=== PATIENT | female | born 1995 | race Two or more races ===

== ENCOUNTER 2019-05-25 14:31 | Emergency (ER) | payer MEDICAID ==
[2019-05-25] MEDS ORDERED: Acetaminophen 500 MG Tab PO ONE (14:57)
[2019-05-25] MEDS ORDERED: Ibuprofen 800 MG Tab PO ONE (14:57)
--- NOTE | 2019-05-25 15:40 | EDM.PDOC ---
ED HPI GENERAL MEDICAL PROBLEM - General Chief Complaint: Syncope Stated Complaint: PASSED OUT, LOTS OF PAIN Time Seen by Provider: 05/25/19 14:40 Source of Information: Reports: Patient History Limitations: Reports: No Limitations - History of Present Illness INITIAL COMMENTS - FREE TEXT/NARRATIVE: Patient presented to the ED because of a syncopal episode while shopping at [employer]. She can't recall what really happened prior to passing out. She said she is under a lot of emotional stress. She c/o headache,body ache. She is tearful and anxious. head Pain Score (Numeric/FACES): 8 back of both legs Pain Score (Numeric/FACES): 8 - Related Data Allergies Allergy/AdvReac Type Severity Reaction Status Date / Time nectarines Allergy Swelling Uncoded 05/25/19 14:46 pineapples Allergy Hives Uncoded 05/25/19 14:46 Home Meds: Home Meds Pantoprazole 20 mg PO ASDIRECTED 05/25/19 [History] Past Medical History Neurological History: Reports: Other (See Below) Other Neuro History: seizure at age 2 - Past Surgical History GI Surgical History: Reports: Cholecystectomy Social & Family History - Tobacco Use Smoking Status *Q: Current Every Day Smoker Years of Tobacco use: 5 Packs/Tins Daily: 0.5 - Recreational Drug Use Recreational Drug Use: No ED ROS GENERAL - Review of Systems Review Of Systems: See Below Constitutional: Reports: No Symptoms HEENT: Reports: No Symptoms Respiratory: Reports: No Symptoms Cardiovascular: Reports: No Symptoms Endocrine: Reports: No Symptoms GI/Abdominal: Reports: No Symptoms : Reports: No Symptoms Musculoskeletal: Reports: Other (aches all over) Skin: Reports: No Symptoms Neurological: Reports: Headache - Physical Exam Exam: See Below Exam Limited By: No Limitations Eye Exam: Bilateral Eye: PERRL Ears: Normal External Exam, Normal Canal, Hearing Grossly Normal Nose: Normal Inspection, Normal Mucosa, No Blood Throat/Mouth: Normal Inspection, Normal Lips, Normal Teeth Head Exam: Normocephalic, Other (hematoma on rt parietal area) Neck: Normal Inspection, Supple, Non-Tender, Full Range of Motion Respiratory/Chest: No Respiratory Distress, Lungs Clear, Normal Breath Sounds Cardiovascular: Normal Peripheral Pulses (Female) Exam: Normal External Exam Course - Vital Signs Text/Narrative:: head CT-see result advised follow up with PMD to have brain MRI/MRA Ibuprofen 800 mg with tylenol 1000 po x1 labs and CT scan result discussed with patient Last Recorded V/S: Last Vital Signs Temp 36.8 C 05/25/19 14:35 Pulse 61 05/25/19 15:40 Resp 16 05/25/19 15:40 BP 121/61 05/25/19 15:40 Pulse Ox 100 05/25/19 15:40 - Orders/Labs/Meds Orders: Active Orders 24 hr Category Date Time Status EKG Documentation Completion [RC] ASDIRECTED Care 05/25/19 14:54 Active Head wo Cont [CT] Stat Exams 05/25/19 14:52 Taken EKG 12 Lead [EK] Routine Ther 05/25/19 14:52 Ordered Labs: Laboratory Tests 05/25/19 05/25/19 05/25/19 Range/Units 14:54 14:58 15:00 WBC 12.9 H (4.5-12.0) X10-3/uL RBC 4.90 (3.23-5.20) x10(6)uL Hgb 14.3 (11.5-15.5) g/dL Hct 42.8 (30.0-51.3) % MCV 87.3 (80-96) fL MCH 29.1 (27.7-33.6) pg MCHC 33.4 (32.2-35.4) g/dL RDW 13.2 (11.5-15.5) % Plt Count 331 (125-369) X10(3)uL MPV 7.5 (7.4-10.4) fL Neut % (Auto) 76.2 (46-82) % Lymph % (Auto) 17.4 (13-37) % Lenoir % (Auto) 5.3 (4-12) % Eos % (Auto) 1 (1.0-5.0) % Baso % (Auto) 1 (0-2) % Neut # (Auto) 9.8 H (1.6-8.3) # Lymph # (Auto) 2.2 (0.6-5.0) # Lenoir # (Auto) 0.7 (0.0-1.3) # Eos # (Auto) 0.1 (0.0-0.8) # Baso # (Auto) 0.1 (0.0-0.2) # Sodium (135-145) mmol/L Potassium (3.5-5.3) mmol/L Chloride (100-110) mmol/L Carbon Dioxide (21-32) mmol/L BUN (7-18) mg/dL Creatinine (0.55-1.02) mg/dL Est Cr Clr Drug Dosing mL/min Estimated GFR (MDRD) (>60) BUN/Creatinine Ratio (9-20) Glucose (80-116) mg/dL Calcium (8.6-10.2) mg/dL Total Bilirubin (0.1-1.3) mg/dL AST (5-25) IU/L ALT (12-36) U/L Alkaline Phosphatase (56-112) IU/L Total Protein (6.0-8.0) g/dL Albumin (3.5-5.2) g/dL Globulin g/dL Albumin/Globulin Ratio Urine Color Yellow (YELLOW) Urine Appearance Clear (CLEAR) Urine pH 6.5 (5.0-6.5) Ur Specific Macy 1.010 (1.010-1.025) Urine Protein Negative (NEGATIVE) mg/dL Urine Glucose (UA) Normal (NORMAL) mg/dL Urine Ketones Negative (NEGATIVE) mg/dL Urine Occult Blood Negative (NEGATIVE) Urine Nitrite Negative (NEGATIVE) Urine Bilirubin Negative (NEGATIVE) Urine Urobilinogen Normal (NEGATIVE) mg/dL Ur Leukocyte Esterase Negative (NEGATIVE) Urine RBC Not seen (0-5) Urine WBC 0-5 (0-5) Ur Squamous Epith Cells Few H (NS,R,O) Urine Bacteria Rare H (NS) Urine HCG, Qual Negative (NEGATIVE) 05/25/19 Range/Units 15:00 WBC (4.5-12.0) X10-3/uL RBC (3.23-5.20) x10(6)uL Hgb (11.5-15.5) g/dL Hct (30.0-51.3) % MCV (80-96) fL MCH (27.7-33.6) pg MCHC (32.2-35.4) g/dL RDW (11.5-15.5) % Plt Count (125-369) X10(3)uL MPV (7.4-10.4) fL Neut % (Auto) (46-82) % Lymph % (Auto) (13-37) % Lenoir % (Auto) (4-12) % Eos % (Auto) (1.0-5.0) % Baso % (Auto) (0-2) % Neut # (Auto) (1.6-8.3) # Lymph # (Auto) (0.6-5.0) # Lenoir # (Auto) (0.0-1.3) # Eos # (Auto) (0.0-0.8) # Baso # (Auto) (0.0-0.2) # Sodium 139 (135-145) mmol/L Potassium 3.7 (3.5-5.3) mmol/L Chloride 102 (100-110) mmol/L Carbon Dioxide 25 (21-32) mmol/L BUN 8 (7-18) mg/dL Creatinine 0.8 (0.55-1.02) mg/dL Est Cr Clr Drug Dosing 86.50 mL/min Estimated GFR (MDRD) > 60 (>60) BUN/Creatinine Ratio 10.0 (9-20) Glucose 93 (80-116) mg/dL Calcium 9.3 (8.6-10.2) mg/dL Total Bilirubin 0.4 (0.1-1.3) mg/dL AST 36 H (5-25) IU/L ALT 50 H (12-36) U/L Alkaline Phosphatase 94 (56-112) IU/L Total Protein 8.2 H (6.0-8.0) g/dL Albumin 4.1 (3.5-5.2) g/dL Globulin 4.1 g/dL Albumin/Globulin Ratio 1.0 Urine Color (YELLOW) Urine Appearance (CLEAR) Urine pH (5.0-6.5) Ur Specific Macy (1.010-1.025) Urine Protein (NEGATIVE) mg/dL Urine Glucose (UA) (NORMAL) mg/dL Urine Ketones (NEGATIVE) mg/dL Urine Occult Blood (NEGATIVE) Urine Nitrite (NEGATIVE) Urine Bilirubin (NEGATIVE) Urine Urobilinogen (NEGATIVE) mg/dL Ur Leukocyte Esterase (NEGATIVE) Urine RBC (0-5) Urine WBC (0-5) Ur Squamous Epith Cells (NS,R,O) Urine Bacteria (NS) Urine HCG, Qual (NEGATIVE) Meds: Medications Discontinued Medications Generic Name Dose Route Start Last Admin Trade Name Thelma PRN Reason Stop Dose Admin Acetaminophen 1,000 mg 05/25/19 14:57 05/25/19 15:15 Tylenol Extra Strength PO 05/25/19 14:58 1,000 mg ONETIME ONE Administration Ibuprofen 800 mg 05/25/19 14:57 05/25/19 15:15 Motrin PO 05/25/19 14:58 800 mg ONETIME ONE Administration Departure - Departure Time of Disposition: 15:40 Disposition: Home, Self-Care 01 Condition: Good Clinical Impression: Syncope, Vasovagal syncope - Discharge Information *PRESCRIPTION DRUG MONITORING PROGRAM REVIEWED*: No *COPY OF PRESCRIPTION DRUG MONITORING REPORT IN PATIENT NORBERTO: No Instructions: Head Injury, Adult, Syncope, [id number] Referrals: PCP,None [Primary Care Provider] - Forms: ED Department Discharge Additional Instructions: Please read discharge instructions on vasovagal syncope and closed head injury Rest for the day You need to follow up with a doctor who will order MRI/MRA of your brain You can take ibuprofen 800 mg with tylenol 1000 mg every 8 hours as needed for pain/aches - My Orders Last 24 Hours: My Active Orders 05/25/19 14:52 Head wo Cont [CT] Stat EKG 12 Lead [EK] Routine 05/25/19 14:54 EKG Documentation Completion [RC] ASDIRECTED - Assessment/Plan Last 24 Hours: My Active Orders 05/25/19 14:52 Head wo Cont [CT] Stat EKG 12 Lead [EK] Routine 05/25/19 14:54 EKG Documentation Completion [RC] ASDIRECTED
--- NOTE | 2019-05-26 08:31 | CT ---
INDICATION: Syncope, fell with posterior parietal head injury. CT HEAD WITHOUT CONTRAST: Spiral 3.75 mm axial imaging of the brain was obtained with sagittal and coronal reconstructions, 05/25/19 - no comparisons. Total exam DLP = 1,296.53 mGy-cm. The paranasal sinuses and mastoid air cells were well-aerated. There is a scalp hematoma in left posterior parietal area with no underlying cranial fracture site. There is a rounded area of decreased density in the left basal ganglia, which could represent an acute lesion. It is low in density, however, and may be old - no old studies were available for comparison. MRI may be helpful for further evaluation of that finding, as may iodinated contrast CT examination. No other areas of abnormal decreased density were identified - no bleeding site or hematoma was seen. IMPRESSION: 1. No definite acute intracranial abnormality. 2. Low density abnormality in the basal ganglia, etiology indeterminate. Further workup may be warranted, such as contrast-enhanced CT or preferably MRI. 3. Posterior parietal scalp hematoma on the left. Report was called to Dr. Deluca at 1531 hours on 05/25/19. [facility]
== END 2019-05-25 15:55 | disposition home or self-care (01) ==
LOC: FB.ED 14:31
DX: R55 Syncope and collapse (principal); F41.9 Anxiety disorder, unspecified; F17.210 Nicotine dependence, cigarettes, uncomplicated; Z91.018 Allergy to other foods
CPT/HCPCS: 36415; 70450; 80053; 81001; 81025; 85025; 93005; 99284-25; A9270-GY

== ENCOUNTER 2019-06-02 06:33 | Emergency (ER) | payer MEDICAID ==
[2019-06-02] MEDS ORDERED: Ketorolac 60 MG/2 ML SDV IM ONE (07:32)
--- NOTE | 2019-06-02 07:41 | EDM.PDOC ---
ED HPI GENERAL MEDICAL PROBLEM - General Chief Complaint: Headache Stated Complaint: HEAD PAIN Time Seen by Provider: 06/02/19 07:34 Source of Information: Reports: Patient History Limitations: Reports: No Limitations - History of Present Illness INITIAL COMMENTS - FREE TEXT/NARRATIVE: c/o ZULETA pt with syncopal episode 8d ago at [facility], still with ZULETA in same area on L top of head and now also behind L ear where blood has tracked down pt wearing a Holtor monitor x 48h which comes off today altho pt reports it come off last night and she had to reattach it works at [employer], went to work today and decided pain was too much, had not taken pain meds today, had taken Tyl 2 tabs BID previously (sometimes ASA) she had a febrile szs once at age 2, no other szs hx pt had seen Dr Baron in the office who began her on an antbx for a "throat infection" with "multiple pus pockets", throat still sore and has not gotten better no street drugs, no THC (altho had used when living in [facility]), smokes less 1/2 ppd moved here recently with 3 yo son pt says there was no prodrome at [facility], feeling fine, found herself on the floor surrounded by people, says she had been down 8-9 min per bystanders no incontinence B/B, say she was feeling fine afterward other than the ZULETA which has persisted for 8d, however when she called her sister her sister said that " I repeated myself 10 times" pt given results of MRI today next apt with Dr Baron is in one month only meds are pantoprazole and antbx pt reports that an EMT was at her side immediately after she fell and "knew what to do", there was no report of arrhythmia - Related Data Allergies Allergy/AdvReac Type Severity Reaction Status Date / Time nectarines Allergy Swelling Uncoded 05/25/19 14:46 pineapples Allergy Hives Uncoded 05/25/19 14:46 Home Meds: Home Meds Pantoprazole 20 mg PO ASDIRECTED 05/25/19 [History] Past Medical History Neurological History: Reports: Other (See Below) Other Neuro History: seizure at age 2 - Past Surgical History GI Surgical History: Reports: Cholecystectomy Social & Family History - Tobacco Use Smoking Status *Q: Current Every Day Smoker Years of Tobacco use: 5 Packs/Tins Daily: 0.5 - Recreational Drug Use Recreational Drug Use: No ED ROS GENERAL - Review of Systems Review Of Systems: See Below Constitutional: Reports: No Symptoms HEENT: Reports: No Symptoms Respiratory: Reports: No Symptoms Cardiovascular: Reports: Other (pt reports minor chest ache L upper chest since her fall when she bends or moves) Endocrine: Reports: No Symptoms GI/Abdominal: Reports: No Symptoms : Reports: No Symptoms Musculoskeletal: Reports: No Symptoms Skin: Reports: No Symptoms Neurological: Reports: Headache Psychiatric: Reports: No Symptoms Hematologic/Lymphatic: Reports: No Symptoms Immunologic: Reports: No Symptoms ED EXAM, GENERAL - Physical Exam Exam: See Below Exam Limited By: No Limitations General Appearance: Alert, WD/WN, No Apparent Distress Ears: Normal External Exam, Normal Canal, Hearing Grossly Normal, Normal TMs Nose: Normal Inspection, Normal Mucosa, No Blood Throat/Mouth: Normal Lips, Normal Teeth, Normal Gums, Other (mild 1+ pink tonsils b/l without exudate, 1+ tonsil size, neck no LNs, conj mild red b/l, tongue slight swell at R margin (was quite swollen at time of fall, per pt)) Head: Atraumatic, Normocephalic Neck: Normal Inspection, Supple, Non-Tender, Full Range of Motion. No: Lymphadenopathy (R), Lymphadenopathy (L) Respiratory/Chest: No Respiratory Distress, Lungs Clear, Normal Breath Sounds, No Accessory Muscle Use, Chest Non-Tender Cardiovascular: Regular Rate, Rhythm, No Edema, No Gallop, No Murmur, No Rub, JVD GI/Abdominal: Normal Bowel Sounds, Soft, Non-Tender, No Distention Back Exam: Normal Inspection, Full Range of Motion, NT Extremities: Normal Inspection, Normal Range of Motion, Non-Tender, Normal Capillary Refill, No Pedal Edema Neurological: Alert, Oriented, CN II-XII Intact, Normal Cognition, Normal Gait, No Motor/Sensory Deficits Psychiatric: Normal Affect, Normal Mood Skin Exam: Warm, Dry, Intact, Normal Color, No Rash Lymphatic: No Adenopathy Course - Vital Signs Last Recorded V/S: Last Vital Signs Temp 36.2 C 06/02/19 06:45 Pulse 84 06/02/19 06:45 Resp 18 06/02/19 06:45 BP 132/87 11/14/19 06:45 Pulse Ox 96 06/02/19 06:45 - Orders/Labs/Meds Orders: Active Orders 24 hr Category Date Time Status CULTURE STREP A CONFIRMATION [RM] Stat Lab 06/02/19 07:40 Results HEPATITIS PANEL (4) Routine Lab 06/02/19 08:36 Ordered MONONUCLEOSIS SCREEN [CHEM] Stat Lab 06/02/19 08:36 Ordered STREP SCRN A RAPID W CULT CONF [RM] Stat Lab 06/02/19 07:40 Results Labs: Laboratory Tests 06/02/19 06/02/19 06/02/19 Range/Units 07:48 07:48 07:48 WBC 8.8 (4.5-12.0) X10-3/uL RBC 4.66 (3.23-5.20) x10(6)uL Hgb 13.7 (11.5-15.5) g/dL Hct 40.8 (30.0-51.3) % MCV 87.6 (80-96) fL MCH 29.4 (27.7-33.6) pg MCHC 33.5 (32.2-35.4) g/dL RDW 13.1 (11.5-15.5) % Plt Count 381 H (125-369) X10(3)uL MPV 7.2 L (7.4-10.4) fL Neut % (Auto) 62.8 (46-82) % Lymph % (Auto) 29.9 (13-37) % Meade % (Auto) 5.3 (4-12) % Eos % (Auto) 2 (1.0-5.0) % Baso % (Auto) 1 (0-2) % Neut # (Auto) 5.6 (1.6-8.3) # Lymph # (Auto) 2.6 (0.6-5.0) # Meade # (Auto) 0.5 (0.0-1.3) # Eos # (Auto) 0.1 (0.0-0.8) # Baso # (Auto) 0.0 (0.0-0.2) # Sodium 140 (135-145) mmol/L Potassium 3.9 (3.5-5.3) mmol/L Chloride 106 (100-110) mmol/L Carbon Dioxide 23 (21-32) mmol/L BUN 11 (7-18) mg/dL Creatinine 0.7 (0.55-1.02) mg/dL Est Cr Clr Drug Dosing 103.40 mL/min Estimated GFR (MDRD) > 60 (>60) BUN/Creatinine Ratio 15.7 (9-20) Glucose 105 (80-116) mg/dL Calcium 9.4 (8.6-10.2) mg/dL Total Bilirubin 0.4 (0.1-1.3) mg/dL AST 38 H (5-25) IU/L ALT 72 H D (12-36) U/L Alkaline Phosphatase 98 (56-112) IU/L C-Reactive Protein 1.4 H (0.5-0.9) mg/dL Total Protein 7.6 (6.0-8.0) g/dL Albumin 3.7 (3.5-5.2) g/dL Globulin 3.9 g/dL Albumin/Globulin Ratio 1.0 Meds: Medications Discontinued Medications Generic Name Dose Route Start Last Admin Trade Name Freq PRN Reason Stop Dose Admin Ketorolac Tromethamine 60 mg 06/02/19 07:32 Toradol IM 06/02/19 07:33 ONETIME ONE - Radiology Interpretation Free Text/Narrative:: labs reviewed, mono neg in office, pt reports inc'd LFTs in past, says hepatitis testing has not been done does have a flu-like illness with inflammation of conj and pharynx, which may be contributing to her ZULETA has taken inadequate doses of analgesics Departure - Departure Time of Disposition: 08:38 Disposition: Home, Self-Care 01 Condition: Good Clinical Impression: Post-concussion headache, Viral syndrome, Elevated liver function tests, Elevated C-reactive protein (CRP) - Discharge Information *PRESCRIPTION DRUG MONITORING PROGRAM REVIEWED*: Not Applicable *COPY OF PRESCRIPTION DRUG MONITORING REPORT IN PATIENT NORBERTO: Not Applicable Instructions: Post-Concussion Syndrome Referrals: Regla Baron MD [Primary Care Provider] - Forms: ED Department Discharge Additional Instructions: For pain, in order to break the pain cycle, take ibuprofen 200 mg 4 tabs and acetaminophen 500 mg 2 tabs 3 times a day for 5 days. If you still have pain despite meds, use ice for 10 minutes every 2 hours as needed. See Dr Baron in 4 days for further evaluation and recommendations. Hepatitis tests results should be back in 4 days. Get adequate rest. Maintain fluids. Eat 3 meals a day. - My Orders Last 24 Hours: My Active Orders 06/02/19 07:40 CULTURE STREP A CONFIRMATION [RM] Stat STREP SCRN A RAPID W CULT CONF [RM] Stat 06/02/19 08:36 HEPATITIS PANEL (4) Routine MONONUCLEOSIS SCREEN [CHEM] Stat - Assessment/Plan Last 24 Hours: My Active Orders 06/02/19 07:40 CULTURE STREP A CONFIRMATION [RM] Stat STREP SCRN A RAPID W CULT CONF [RM] Stat 06/02/19 08:36 HEPATITIS PANEL (4) Routine MONONUCLEOSIS SCREEN [CHEM] Stat
[2019-06-03 11:09] LABS: HBSAG SCREEN Negative (Negative); HEP A AB, IGM Negative (Negative); HEP B CORE AB, IGM Negative (Negative); HEP C VIRUS AB 0.1 s/co ratio (0.0-0.9)
== END 2019-06-02 08:57 | disposition home or self-care (01) ==
LOC: FB.ED 06:33
DX: F07.81 Postconcussional syndrome (principal); B34.9 Viral infection, unspecified; R94.5 Abnormal results of liver function studies; R79.82 Elevated C-reactive protein (CRP); F17.210 Nicotine dependence, cigarettes, uncomplicated; Z91.018 Allergy to other foods
CPT/HCPCS: 36415; 80053; 80074; 85025; 86140; 87081; 87880; 96372; 99284; J1885

== ENCOUNTER 2019-06-08 15:20 | Emergency (ER) | payer MEDICAID ==
--- NOTE | 2019-06-08 17:08 | EDM.PDOC ---
ED HPI GENERAL MEDICAL PROBLEM - General Chief Complaint: Neuro Symptoms/Deficits Stated Complaint: FEELING PASSED OUT Time Seen by Provider: 06/08/19 15:40 Source of Information: Reports: Patient History Limitations: Reports: No Limitations - History of Present Illness INITIAL COMMENTS - FREE TEXT/NARRATIVE: Patient presented to the ED because of near syncopal episode. He was shopping when all of a sudden she felt like she want to pass out. She denies any palpitations, headache. She had a Head CT,MRI which was normal and just last week had a holter monitor and EEG but results are pending at this time. Headache Pain Score (Numeric/FACES): 8 - Related Data Allergies Allergy/AdvReac Type Severity Reaction Status Date / Time nectarines Allergy Swelling Uncoded 06/08/19 15:38 pineapples Allergy Hives Uncoded 06/08/19 15:38 Home Meds: Home Meds Pantoprazole 20 mg PO ASDIRECTED 05/25/19 [History] Ibuprofen 800 mg PO TID #30 tablet 06/02/19 [Rx] Amoxicillin [Amoxil] 875 mg PO Q12HR 06/08/19 [History] Sertraline [Zoloft] 25 mg PO DAILY 06/08/19 [History] Past Medical History Respiratory History: Reports: Asthma Gastrointestinal History: Reports: None, Gastritis, Other (See Below) Other Gastrointestinal History: fatty liver 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: Neurological History: Reports: Concussion, Migraines, Seizure, Other (See Below) Other Neuro History: seizure at age 2 Psychiatric History: Reports: Anxiety, Depression Endocrine/Metabolic History: Reports: Obesity/BMI 30+ - Past Surgical History GI Surgical History: Reports: Cholecystectomy Social & Family History - Family History Family Medical History: Noncontributory - Tobacco Use Smoking Status *Q: Current Every Day Smoker Years of Tobacco use: 5 Packs/Tins Daily: 0.4 - Caffeine Use Caffeine Use: Reports: Coffee, Tea - Recreational Drug Use Recreational Drug Use: Yes Recreational Drug Type: Reports: Marijuana/Hashish Other Recreational Drug Type: Hasn't smoked x past 4 weeks. ED ROS GENERAL - Review of Systems Review Of Systems: See Below Constitutional: Reports: No Symptoms HEENT: Reports: No Symptoms Respiratory: Reports: No Symptoms Cardiovascular: Reports: No Symptoms Endocrine: Reports: No Symptoms GI/Abdominal: Reports: No Symptoms : Reports: No Symptoms Musculoskeletal: Reports: No Symptoms Skin: Reports: No Symptoms Neurological: Reports: Other (near syncope) Psychiatric: Reports: No Symptoms Hematologic/Lymphatic: Reports: No Symptoms Immunologic: Reports: No Symptoms ED EXAM, NEURO - Physical Exam Exam: See Below Exam Limited By: No Limitations General Appearance: Alert, WD/WN, No Apparent Distress Eye Exam: Bilateral Eye: PERRL Ears: Normal External Exam, Normal Canal, Hearing Grossly Normal Nose: Normal Inspection, Normal Mucosa Throat/Mouth: Normal Inspection, Normal Lips, Normal Teeth, Normal Gums Head Exam: Atraumatic, Normocephalic Neck: Normal Inspection, Supple, Non-Tender, Full Range of Motion Respiratory/Chest: No Respiratory Distress, Lungs Clear, Normal Breath Sounds Cardiovascular: Normal Peripheral Pulses, Regular Rate, Rhythm, No Edema, No Gallop, No JVD, No Murmur, No Rub GI/Abdominal: Normal Bowel Sounds, Soft, Non-Tender, No Organomegaly Back Exam: Normal Inspection, Full Range of Motion Extremities: Normal Inspection Psychiatric: Normal Affect, Normal Mood Course - Vital Signs Text/Narrative:: She was observed in the ED for an hour without any event. There is no point of repeating same albs and and work up again. She just need to follow up on her holter and EEG result. Last Recorded V/S: Last Vital Signs Temp 36.6 C 06/08/19 17:25 Pulse 62 06/08/19 17:25 Resp 17 06/08/19 17:25 BP 111/75 06/08/19 17:25 Pulse Ox 98 06/08/19 17:25 Departure - Departure Time of Disposition: 17:10 Disposition: Home, Self-Care 01 Condition: Good Clinical Impression: Vasovagal near syncope - Discharge Information Instructions: Near-Syncope, [id number] Referrals: Regla Baron MD [Primary Care Provider] - Forms: ED Department Discharge Additional Instructions: please read discharge instructions on vasovagal syncope follow up your EEG and Holter result on Thursday
== END 2019-06-08 17:29 | disposition home or self-care (01) ==
LOC: FB.ED 15:20
DX: R55 Syncope and collapse (principal); F17.210 Nicotine dependence, cigarettes, uncomplicated; J45.909 Unspecified asthma, uncomplicated; F41.9 Anxiety disorder, unspecified; F32.9 Major depressive disorder, single episode, unspecified; E66.9 Obesity, unspecified; Z68.31 Body mass index [BMI] 31.0-31.9, adult; Z79.899 Other long term (current) drug therapy; Z91.018 Allergy to other foods; Z88.8 Allergy status to other drugs, medicaments and biological substances
CPT/HCPCS: 82962; 99284

== ENCOUNTER 2024-01-28 15:50 | Emergency (ER) | payer OTHER ==
[2024-01-28] MEDS: Albuterol 0.083% 2.5 MG/3 ML Neb Soln NEB ONE (16:34)
[2024-01-28 18:16] VITALS: BP 143/65; PULSE 76
== END 2024-01-28 18:15 | disposition home or self-care (01) ==
LOC: FB.ED 15:50
DX: T54.91XA Toxic effect of unspecified corrosive substance, accidental (unintentional), initial encounter (principal); J45.909 Unspecified asthma, uncomplicated; E66.9 Obesity, unspecified; Z79.899 Other long term (current) drug therapy; Z91.018 Allergy to other foods; Z88.8 Allergy status to other drugs, medicaments and biological substances; Z68.32 Body mass index [BMI] 32.0-32.9, adult
CPT/HCPCS: 71046; 99283; 99284